=== PATIENT | male | born 1960 | race Caucasian/White ===

== ENCOUNTER → 2016-07-07 11:39 | Outpatient (CLI) | payer BC | END | disposition home or self-care (01) | LOC: D.MRI 11:39 | DX: H53.8 Other visual disturbances (principal) ==

== ENCOUNTER 2019-12-23 15:03 | Inpatient (IN) | payer BC ==
[~2019-12-23] VITALS: Ht 177.8 cm; Wt 106.8 kg
[2019-12-23] MEDS ORDERED: LIPITOR40 MG (15:08)
[2019-12-23] MEDS ORDERED: GLUCOPHAGE1000 MG PO (15:08)
[2019-12-23] MEDS ORDERED: BAYER CHEWABLE81 MG PO (15:08)
[2019-12-23] MEDS ORDERED: NORVASC2.5 MG (15:08)
[2019-12-23 16:00] LABS: BASOPHILS 0.3 % (0-2); EOSINOPHILS 2.4 % (0-7); HEMATOCRIT 43.2 % (42.0-54.0); HEMOGLOBIN 14.2 g/dL (13.5-17.5); IMMATURE GRANULOCYTES 0.3 % (0-5); LYMPHOCYTES 30.7 % (15-50); MCH 27.8 pg (26.0-34.0); MCHC 32.9 g/dL (31.0-37.0); MCV 84.5 fL (80.0-100.0); MEAN PLATELET VOLUME 10.1 fL (7.4-10.4); MONOCYTES 8.2 % (2-11); NEUTROPHILS 58.1 % (40-80); PLATELET COUNT 264 10x3/uL (130-400); RBC 5.11 10x6/uL (4.20-6.10); RDW 14.4 % (11.5-14.5); WBC 8.9 10x3/uL (4.8-10.8)
[2019-12-23 16:18] LABS: APTT 29.4 SECONDS (22.8-39.4); INR 0.89 (0.85-1.17)
[2019-12-23 16:29] LABS: ANION GAP 15.7 mmol/L (8-16); CARBON DIOXIDE 22.6 mmol/L (21.0-32.0); CREATININE - SERUM 1.4 mg/dL (0.6-1.3); POTASSIUM - SERUM 4.3 mmol/L (3.5-5.1)
[2019-12-23 16:38] LABS: BILIRUBIN - TOTAL 0.25 mg/dL (0.2-1.3)
--- NOTE | 2019-12-23 22:30 | NUR ---
PT ARRIVED ON UNIT VIA WHEELCHAIR, ESCORTED BY ER NURSE. PROVIDED GOWN AND GRIPPER SOCKS FOR PT TO CHANGE.
--- NOTE | 2019-12-23 22:39 | NUR ---
HS MEDICATIONS GIVEN. GAVE SHACK OF TURKEY SANDWICH TRAY. WILL CONTINUE TO MONITOR CLOSELY.
[2019-12-23 22:44] VITALS: BP 161/87; Ht 177.8 cm; Wt 106.8 kg
[2019-12-23] MEDS ORDERED: XIGDUO XR 10 M1 EAC1 PO (22:52)
--- NOTE | 2019-12-23 23:47 | NUR ---
ADMISSION ASSESSMENT AND HISTORY COMPLETE.
[2019-12-24 05:13] VITALS: BP 150/75
[2019-12-24 05:44] LABS: BASOPHILS 0.4 % (0-2); EOSINOPHILS 2.7 % (0-7); HEMATOCRIT 43.3 % (42.0-54.0); HEMOGLOBIN 14.1 g/dL (13.5-17.5); IMMATURE GRANULOCYTES 0.3 % (0-5); LYMPHOCYTES 28.9 % (15-50); MCH 27.4 pg (26.0-34.0); MCHC 32.6 g/dL (31.0-37.0); MCV 84.1 fL (80.0-100.0); MEAN PLATELET VOLUME 10.3 fL (7.4-10.4); MONOCYTES 9.3 % (2-11); NEUTROPHILS 58.4 % (40-80); PLATELET COUNT 270 10x3/uL (130-400); RBC 5.15 10x6/uL (4.20-6.10); RDW 14.5 % (11.5-14.5); WBC 7.9 10x3/uL (4.8-10.8)
[2019-12-24 06:15] LABS: ALBUMIN 3.7 g/dL (3.4-5.0); BILIRUBIN - TOTAL 0.35 mg/dL (0.2-1.3); CALCIUM 8.8 mg/dL (8.5-10.1); CREATININE - SERUM 1.1 mg/dL (0.6-1.3); PROTEIN - SERUM 6.9 g/dL (6.4-8.2)
--- NOTE | 2019-12-24 07:15 | NUR ---
RECEIVED BEDSIDE REPORT. PT LAYING DOWN IN BED, AROUSES TO VOICE, O X 4, DENIES PAIN. PIV IN RIGHT HAND, S/L, PATENT WITH NO REDNESS OR SWELLING. EDUCATED PT ON ECHO SCHEDULED, CL AND NEEDS, VERBALIZED UNDERSTANDING. BED LOW, RAILS X2. CL IN REACH. WILL CONTINUE TO MONITOR.
[2019-12-24 07:59] VITALS: BP 114/74
[2019-12-24 11:49] VITALS: BP 120/68
[2019-12-24] MEDS ORDERED: PLAVIX75 MG PO (16:17)
[2019-12-24 16:49] VITALS: BP 140/78
--- NOTE | 2019-12-24 17:18 | NUR ---
EDUCATED PT ON DISCHARGE INSTRUCTIONS, MEDICATIONS, FOLLOW UP APT, ACTIVITY TOLERATED. REMOVED PIV FROM RIGHT HAND, CATHETER INTACT, PT TOLERATED WELL. ESCORTED PT TO ER ENTRANCE VIA WHEELCHAIR.
--- NOTE | 2019-12-26 16:55 | EC ---
PATIENT:DEJAH HOWARD DATE OF SERVICE: 12/23/19 SEX: M MEDICAL RECORD: [id number] DATE OF : 58 LOCATION:[facility] AGE OF PATIENT: 59 ADMISSION DATE: 12/23/19 REFERRING PHYSICIAN: INTERPRETING PHYSICIAN: MARIANGEL HERNANDEZ MD ECHOCARDIOGRAM REPORT ECHO CHARGES 4 ECHO COMPLETE Date: 12/24/19 CLINICAL DIAGNOSIS: TIA ECHOCARDIOGRAPHIC MEASUREMENTS (adult normal given) AC root (d.<3.7cm) 3.0 cm LV Septum d (<1.2 cm> 0.9 cm Valve Excursion 1.6 cm LV Septum (systole) 1.4 cm Left Atria (s.<4.0cm> 3.4 cm LVPW d(<1.2cm) 0.9 cm RV (d.<2.3cm) 3.0 cm LVPW (sytole) 1.4 cm LV diastole(<5.6CM) 5.6 cm MV E-F(>70mm/sec) cm LV systole 4.1 cm LVOT Diameter 1.8 cm MV exc.(>10mm) 1.5 cm Est.ejection fraction (50-75%) % DOPPLER: LVIT cm/sec A 63 cm/sec E 75 cm/sec LA cm/sec RVSP 29 mmHg LVOT 95 cm/sec AOP1/2T m/s Asc. Ao 149 cm/sec RVOT 57 cm/sec RA cm/sec PA 88 cm/sec AV Gradient Peak 8.9 mmHg AV Mean 4.7 mmHg AV Area 1.7 cm MV Gradient Peak 2.8 mmHg MV Mean 1.2 mmHg MV Area cm COMMENTS: Cleat Layer: Nola [employer]ORM [employer] Bus Driver: 3 Dr. Mora TAPE# PACS Pericardial Effusion N DATE OF SERVICE: Adequate 2D, color flow imaging, spectral Doppler, and M-Mode. No LVH. LV internal dimensions are normal. Wall motion is normal. EF is greater than or equal to 55%. Aortic valve is tricuspid. No evidence of stenosis by Doppler interrogation. Left atrium is normal. Mitral valve shows no prolapse. Trivial MR. Right-sided chambers are grossly normal. Trivial TR. TRANSINT:[id number] Voice Confirmation ID: [id number] DOCUMENT ID: [id number] ECHOCARDIOGRAM REPORT [id number] ANITADEJAH LO MARIANGEL HERNANDEZ MD at 1655 CC: [id number] DICTATION DATE: 12/25/19 0833 MEN'S SWIM COACH: 12/25/19 1109 DIS IN 12/24/19 [id number] [place] [address]
--- NOTE | 2019-12-26 16:55 | EC ---
PATIENT:DEJAH HOWARD DATE OF SERVICE: 12/23/19 SEX: M MEDICAL RECORD: [id number] DATE OF : 58 LOCATION:[facility] AGE OF PATIENT: 59 ADMISSION DATE: 12/23/19 REFERRING PHYSICIAN: INTERPRETING PHYSICIAN: MARIANGEL HERNANDEZ MD ECHOCARDIOGRAM REPORT ECHO CHARGES 4 ECHO COMPLETE Date: 12/24/19 CLINICAL DIAGNOSIS: TIA ECHOCARDIOGRAPHIC MEASUREMENTS (adult normal given) AC root (d.<3.7cm) 3.0 cm LV Septum d (<1.2 cm> 0.9 cm Valve Excursion 1.6 cm LV Septum (systole) 1.4 cm Left Atria (s.<4.0cm> 3.4 cm LVPW d(<1.2cm) 0.9 cm RV (d.<2.3cm) 3.0 cm LVPW (sytole) 1.4 cm LV diastole(<5.6CM) 5.6 cm MV E-F(>70mm/sec) cm LV systole 4.1 cm LVOT Diameter 1.8 cm MV exc.(>10mm) 1.5 cm Est.ejection fraction (50-75%) % DOPPLER: LVIT cm/sec A 63 cm/sec E 75 cm/sec LA cm/sec RVSP 29 mmHg LVOT 95 cm/sec AOP1/2T m/s Asc. Ao 149 cm/sec RVOT 57 cm/sec RA cm/sec PA 88 cm/sec AV Gradient Peak 8.9 mmHg AV Mean 4.7 mmHg AV Area 1.7 cm MV Gradient Peak 2.8 mmHg MV Mean 1.2 mmHg MV Area cm COMMENTS: Pattern Technician: Nola STORM Data Migration Consultant: 3 Dr. Mora TAPE# PACS Pericardial Effusion N DATE OF SERVICE: Adequate 2D, color flow imaging, spectral Doppler, and M-Mode. No LVH. LV internal dimensions are normal. Wall motion is normal. EF is greater than or equal to 55%. Aortic valve is tricuspid. No evidence of stenosis by Doppler interrogation. Left atrium is normal. Mitral valve shows no prolapse. Trace MR. Right-sided chambers are grossly normal. Trace TR. TRANSINT:[id number] Voice Confirmation ID: [id number] DOCUMENT ID: [id number] ECHOCARDIOGRAM REPORT [id number] ANITADEJAH LO MARIANGEL HERNANDEZ MD at 1655 CC: [id number] DICTATION DATE: 12/25/19830 JOURNALISM INSTRUCTOR: 12/25/19 1105 DIS IN 12/24/19 [id number] [place] [address]
== END 2019-12-24 17:19 | disposition home or self-care (01) | DRG 69 ==
LOC: D.ER 15:03 → D.MS 21:45
PROVIDERS: Family Medicine; ADMIT Family Medicine; ATTEND Family Medicine
DX: G45.9 Transient cerebral ischemic attack, unspecified (principal); I16.0 Hypertensive urgency; E11.9 Type 2 diabetes mellitus without complications; R20.0 Anesthesia of skin; Z87.891 Personal history of nicotine dependence